=== PATIENT | male | born 1980 | race Caucasian/White ===

== ENCOUNTER → 2018-07-21 | Outpatient (CLI) | payer OTHER ==
[~2018-07-21] MED LIST: 0.9 % SODIUM CHLORIDE 10 ML DISP.SYRIN. ID ONE; GADOBUTROL 7.5 MMOL/7.5 ML VIAL INT ART ONE; IOHEXOL 300 MG/ML 50 ML VIAL. INT ART ONE; LIDOCAINE 1% Multi-Dose 20 ML VIAL. ID ONE; LISI1TAB3 PO
--- NOTE | 2018-07-21 16:31 | KCIC ---
MR arthrogram of the right shoulder Indication: Right shoulder pain. AC joint arthritis. Injury May 14. Technique: Intra-articular contrast injected into the glenohumeral joint and is reported separately. Routine 4 plane sequences were obtained, including ABER positioning. FINDINGS: Artifact: Mild motion degradation. Acromioclavicular joint: Mildly degenerative with subchondral cysts. Rotator cuff: * Supraspinatus-infraspinatus tendon: There is mild partial thickness undersurface fraying and superficial tearing of the supraspinatus tendon, but no deep defect or measurable gap. * Subscapularis tendon: Partial tear of the subscapularis tendon. * Muscle bulk: Within normal limits * Subacromial subdeltoid bursa: No significant fluid or contrast accumulation. Articular cartilage: No acute cartilage defect or advanced DJD. Labrum: Tear of the posterosuperior labrum. Biceps tendon: Tendinosis with partial tearing. Bones: No lesion or acute fracture. Soft tissue: No acute findings. Impression: 1. Mild partial thickness undersurface tearing of the supraspinatus tendon. Partial subscapularis tendon tear. 2. Posterosuperior labral tear. 3. Partial biceps tendon tear Electronically signed by: Dashawn Iverson MD (07/21/2018 4:27 PM) [id number]
--- NOTE | 2018-07-21 17:25 | KCIC ---
PROCEDURE: Right shoulder injection using fluoroscopic guidance, prior to MR. HISTORY: Shoulder pain. TECHNIQUE: The procedure was explained to the patient as were potential risks, including among others infection, bleeding or allergic reaction. All questions were answered. Informed written and verbal consent was obtained. The shoulder was prepped and draped in the usual sterile manner. Following administration of local anesthetic, a 22-gauge needle was advanced into the anterior shoulder. Following negative aspiration, 12 cc of a solution of 5cc Omnipaque-300 contrast, 5 cc 1% lidocaine, 10 cc normal saline, and 0.1 cc gadolinium was injected without difficulty. The needle was removed. There was good hemostasis at the injection site. The patient left in stable condition without immediate complication. A single spot image is obtained. FLUOROSCOPY TIME:?23 seconds Electronically signed by: Dashawn Iverson MD (07/21/2018 5:20 PM) [id number]
== END | disposition home or self-care (01) ==
LOC: KCIC 12:34
PROVIDERS: ATTEND Orthopaedic Surgery Sports Medicine
DX: S46.011A Strain of muscle(s) and tendon(s) of the rotator cuff of right shoulder, initial encounter (principal); S46.211A Strain of muscle, fascia and tendon of other parts of biceps, right arm, initial encounter; S43.431A Superior glenoid labrum lesion of right shoulder, initial encounter; M19.011 Primary osteoarthritis, right shoulder; I10 Essential (primary) hypertension; J45.909 Unspecified asthma, uncomplicated; Z79.899 Other long term (current) drug therapy; Z87.891 Personal history of nicotine dependence; Z98.890 Other specified postprocedural states; Z98.1 Arthrodesis status; X58.XXXA Exposure to other specified factors, initial encounter; Y93.89 Activity, other specified; Y92.89 Other specified places as the place of occurrence of the external cause; Y99.8 Other external cause status
CPT/HCPCS: 23350; 73040; 73222; A9585; Q9967